=== PATIENT | male | born 1955 | race African-American/Black ===

== ENCOUNTER 2017-10-19 02:53 | Emergency (ER) | payer MEDICAID, OTHER ==
[~2017-10-19] VITALS: Ht 185.4 cm; Wt 79.0 kg
[2017-10-19] MEDS ORDERED: SODIUM CHLORIDE 0.9% 1,000 ML IV ONE (03:55)
[2017-10-19] MEDS ORDERED: VISCOUS LIDOCAINE 2% 15 ML UDC PO STA (03:55)
[2017-10-19] MEDS ORDERED: ONDANSETRON HCL 4MG/2ML VIAL IV STA (03:55)
[2017-10-19] MEDS ORDERED: MAGNESIUM/ALUMINUM HYDROXIDE/SIMETHICONE 30ML UDC PO STA (03:55)
[2017-10-19] MEDS ORDERED: FAMOTIDINE 20MG/2ML VIAL IV STA (03:55)
[2017-10-19 04:59] LABS: BASOPHILS % 0.2 % (0.0-2.0); EOSINOPHILS % 0.6 % (0.0-5.0); HEMOGLOBIN. 11.6 g/dL (14.0-18.0); LYMPHOCYTES % 9.2 % (20.0-50.0); MEAN CORPUSCULAR HEMOGLOBIN 28.1 pg (28.0-32.0); MEAN CORPUSCULAR VOLUME 84.4 fL (80.0-94.0); MEAN PLATELET VOLUME 6.9 fl (7.4-10.4); MONOCYTES % 8.8 % (2.0-8.0); NEUTROPHILS % 81.2 % (40.0-76.0); PLATELET 275 x1000/uL (130-400); RED BLOOD CELL COUNT 4.14 mill/uL (4.7-6.1); RED CELL DISTRIBUTION WIDTH 13.8 % (11.6-14.6)
[2017-10-19 05:00] LABS: CHLORIDE 106 mEq/L (98-107)
[2017-10-19 06:21] VITALS: BP 145/75
== END 2017-10-19 06:24 | disposition home or self-care (01) ==
LOC: ER 02:53
DX: K29.00 Acute gastritis without bleeding (principal); R79.89 Other specified abnormal findings of blood chemistry; D64.9 Anemia, unspecified; J45.909 Unspecified asthma, uncomplicated; J44.9 Chronic obstructive pulmonary disease, unspecified; I10 Essential (primary) hypertension; Z88.5 Allergy status to narcotic agent
CPT/HCPCS: 36415; 80053; 83690; 85025; 96361; 96374; 96375; 99284; J2405; J3490; J7030; Z7610

== ENCOUNTER 2018-03-05 10:31 | Emergency (ER) | payer MEDICAID ==
[~2018-03-05] VITALS: Ht 180.3 cm; Wt 70.0 kg
[2018-03-05] MEDS ORDERED: KETOROLAC 60MG/2ML VIAL IM ONE (11:45)
[2018-03-05 13:05] VITALS: BP 142/78
== END 2018-03-05 13:14 | disposition home or self-care (01) ==
LOC: ER 10:31
DX: M54.9 Dorsalgia, unspecified (principal); J45.909 Unspecified asthma, uncomplicated; I10 Essential (primary) hypertension; Z88.5 Allergy status to narcotic agent
CPT/HCPCS: 71045; 93005; 96372; 99284; J1885

== ENCOUNTER 2018-10-11 18:13 | Emergency (ER) | payer MEDICAID ==
[~2018-10-11] VITALS: Ht 182.9 cm; Wt 75.0 kg
[2018-10-11 18:53] VITALS: BP 139/95
[2018-10-11] MEDS ORDERED: ACETAMINOPHEN 325MG TABLET PO ONE (23:00)
== END 2018-10-12 01:07 | disposition home or self-care (01) ==
LOC: ER 18:13
DX: S93.402A Sprain of unspecified ligament of left ankle, initial encounter (principal); S93.602A Unspecified sprain of left foot, initial encounter; R60.9 Edema, unspecified; J45.909 Unspecified asthma, uncomplicated; J44.9 Chronic obstructive pulmonary disease, unspecified; I10 Essential (primary) hypertension; Z98.890 Other specified postprocedural states; Z88.5 Allergy status to narcotic agent; V29.9XXA Motorcycle rider (driver) (passenger) injured in unspecified traffic accident, initial encounter; Y93.89 Activity, other specified; Y92.89 Other specified places as the place of occurrence of the external cause; Y99.8 Other external cause status
CPT/HCPCS: 73610; 73630; 93971; 99284

== ENCOUNTER 2020-02-13 09:44 | Emergency (ER) | payer OTHER ==
[~2020-02-13] VITALS: Ht 180.3 cm; Wt 75.0 kg
[2020-02-13] MEDS ORDERED: IBUPROFEN 600MG TABLET PO STA (11:06)
[2020-02-13 12:03] VITALS: BP 124/69
== END 2020-02-13 12:04 | disposition home or self-care (01) ==
LOC: ER 09:44
DX: M19.041 Primary osteoarthritis, right hand (principal); M25.561 Pain in right knee; I10 Essential (primary) hypertension; J45.909 Unspecified asthma, uncomplicated; J44.1 Chronic obstructive pulmonary disease with (acute) exacerbation; Z88.6 Allergy status to analgesic agent; Z98.890 Other specified postprocedural states
CPT/HCPCS: 73030; 73130; 99284

== ENCOUNTER 2020-07-19 10:03 | Emergency (ER) | payer OTHER ==
[~2020-07-19] VITALS: Ht 180.3 cm; Wt 73.0 kg
[2020-07-19] MEDS ORDERED: IBUPROFEN 600MG TABLET PO STA (10:19)
[2020-07-19] MEDS ORDERED: NAPR-681 PO (11:19)
[2020-07-19 11:34] VITALS: BP 139/78
== END 2020-07-19 11:43 | disposition home or self-care (01) ==
LOC: ER 10:03
DX: M19.041 Primary osteoarthritis, right hand (principal); M19.042 Primary osteoarthritis, left hand; J44.1 Chronic obstructive pulmonary disease with (acute) exacerbation; J45.909 Unspecified asthma, uncomplicated; Z88.5 Allergy status to narcotic agent; Z88.6 Allergy status to analgesic agent
CPT/HCPCS: 73130; 99283

== ENCOUNTER 2020-10-31 09:02 | Emergency (ER) | payer MEDICARE, OTHER ==
[~2020-10-31] VITALS: Ht 185.4 cm; Wt 90.0 kg
[~2020-10-31 09:02] MED LIST: NAPR-681 PO
[2020-10-31] MEDS ORDERED: KETOROLAC 60MG/2ML VIAL IM ONE (09:45)
[2020-10-31] MEDS ORDERED: IBUP-2028 MT (11:03)
[2020-10-31] MEDS ORDERED: HYDR-4346 MT (11:03)
[2020-10-31 11:20] VITALS: BP 141/70
== END 2020-10-31 11:23 | disposition home or self-care (01) ==
LOC: ER 09:02
DX: M19.042 Primary osteoarthritis, left hand (principal); J45.909 Unspecified asthma, uncomplicated; J44.9 Chronic obstructive pulmonary disease, unspecified; I10 Essential (primary) hypertension; Z85.9 Personal history of malignant neoplasm, unspecified; Z88.6 Allergy status to analgesic agent; Z98.890 Other specified postprocedural states
CPT/HCPCS: 29125; 73130; 96372; 99283; J1885